=== PATIENT | male | born 1985 | race Caucasian/White ===

== ENCOUNTER 2018-03-23 09:58 | Emergency (ER) | payer OTHER ==
[2018-03-23 10:25] VITALS: RESP 18; TEMP 97.5
[2018-03-23 11:09] VITALS: BP 158/92; PULSE 82; O2SAT 97
== END 2018-03-23 11:02 | disposition home or self-care (01) | DRG 125 ==
LOC: ED 09:58
DX: H10.33 Unspecified acute conjunctivitis, bilateral (principal); H53.8 Other visual disturbances
CPT/HCPCS: 99282